=== PATIENT | male | born 1945 | race Caucasian/White ===

== ENCOUNTER → 2023-07-26 | Outpatient (CLI) | payer MEDICARE, BC ==
[2023-07-26 16:12] LABS: HCT 40.6 % (39.6-50.0); HGB 13.9 g/dL (13.0-17.0); MCH 32.9 pg (27.0-32.0); MCHC 34.2 g/dL (32.0-37.0); Mean Platelet Volume 9.8 FL (9.5-12.2); NRBC Per 100 WBC 0 X 10*3/uL (0.00-0.01); Platelet Count 268 X 10*3/uL (140-440); RBC 4.23 X 10*6/uL (4.40-5.60); WBC 3.13 X 10*3/uL (4.50-10.00)
[2023-07-26 16:18] LABS: BUN/Creat Ratio 24.62 Ratio (12.00-20.00); Blood Urea Nitrogen 19.7 mg/dL (9.0-27.0); Calcium 10.2 mg/dL (8.7-10.3); Carbon Dioxide 23.2 mmol/L (21.6-31.8); Chloride 104 mmol/L (96-109); Glucose 112 mg/dL (70-110); Potassium 4.5 mmol/L (3.5-5.5); Sodium 139 mmol/L (135-145)
== END | disposition home or self-care (01) ==
LOC: LABWHC1 07:25
PROVIDERS: ATTEND Surgery
DX: Z01.812 Encounter for preprocedural laboratory examination (principal)
CPT/HCPCS: 36415; 80048; 83036; 85027; 86850; 86900; 86901

== ENCOUNTER → 2023-11-03 | Outpatient (CLI) | payer MEDICARE, BC ==
[2023-11-03 10:33] LABS: African American GFR (CKD) >90 (>60 ml/min/1.73 sqM); Blood Urea Nitrogen 18 mg/dL (9-20); Non-African American GFR(CKD) >90 (>60 ml/min/1.73 sqM)
--- NOTE | 2023-11-03 12:23 | CT ---
EXAMINATION TYPE: CT ChestAbdPelvis w con DATE OF EXAM: 11/03/2023 COMPARISON: Head CT 07/17/2022 HISTORY: 77-year-old male f/u rectal ca TECHNIQUE: Contiguous axial scanning of the chest, abdomen, and pelvis performed with IV Contrast, pa tient injected with 100 mL of Isovue 300. Delayed images through the kidneys were obtained. Coronal/s agittal reconstructions performed. CT DLP: 927.7 mGycm Automated exposure control for dose reduction was used. FINDINGS: Chest: Heart normal size without pericardial effusion. The aorta is caliber with no charge was a branching anatomy. Right anterior chest wall injection port with catheter tip at the cavoatrial junction. Enlarged caliber to the main right and left pulmonary artery were 90 cm underlying pulmonary hyperten carmel. No thoracic lymphadenopathy by CT size criteria. Some interstitial scarring at the medial right base with mild bronchiolectasis. Minimal emphysematous change. No consolidation or pleural effusion. ABDOMEN: Unchanged 1.6 cm cyst right hepatic dome. Portal venous system. Gallbladder distended up to 5.0 cm wide with gallstones measuring up to 1.2 cm. No biliary ductal dil atation. Portal venous system is patent. Adrenal glands, left kidney, spleen, and pancreas within normal limits. Right-sided renal cortical cysts measuring up to 2.8 cm redemonstrated. No dilated small bowel, free fluid, or free air. No mesenteric or retroperitoneal lymphadenopathy see n. Normal appendix visualized. Postsurgical change along the right lower quadrant likely from previous ostomy takedown. There is sca ttered mild to moderate stool. Oral contrast progressed to the rectum. There is circumferential wall thickening of the distal rectum with distal rectal anastomosis demonstrated. Presacral soft tissue th ickening and stranding and mild fat stranding within the lower pelvic fat. Pelvis: Mild circumferential bladder wall thickening is unchanged, probably chronic for the patient especiall y given the prostatomegaly at 5.1 cm wide. No pelvic lymphadenopathy seen. Bones: Moderate degenerative change of the hips. Degenerative change bilateral SI joints. [facility] mid and lower thoracic spine. Moderate degenerative change mid and lower lumbar spine. Degenerative grade 1 retrol isthesis L2-L3 and L3-L4. No osseous destructive process seen. IMPRESSION: 1. DISTAL RECTAL RESECTION AND RE-ANASTOMOSIS WITH ASSOCIATED MILD SOFT TISSUE THICKENING, PRESACRAL STRANDING, AND ADDITIONAL MILD STRANDING THROUGHOUT THE LOWER PELVIC FAT. FINDINGS LIKELY ON THE BASI S OF POSTTREATMENT CHANGE. ONGOING FOLLOW-UP CAN BE PERFORMED. NO DISCRETE MASS OR LYMPHADENOPATHY TO CLEARLY INDICATE RECURRENT DISEASE. 2. SCARRING ALONG THE ANTERIOR WALL OF THE RIGHT LOWER QUADRANT SUGGESTING PREVIOUS OSTOMY TAKEDOWN. 3. CHOLELITHIASIS WITH HYDROPIC GALLBLADDER UP TO 5.0 CM WIDE. THE GALLBLADDER DISTENTION IS PROBABLY DUE TO FASTING STATE. HIDA SCAN IF CONCERN FOR EARLY ACUTE CHOLECYSTITIS. 4. PROSTATOMEGALY OF 5.1 CM WIDE.
== END | disposition home or self-care (01) ==
LOC: RADCTMAIN 09:52
PROVIDERS: ATTEND Internal Medicine Hematology & Oncology
DX: C20 Malignant neoplasm of rectum (principal); K80.20 Calculus of gallbladder without cholecystitis without obstruction; N40.0 Benign prostatic hyperplasia without lower urinary tract symptoms; I10 Essential (primary) hypertension; E78.5 Hyperlipidemia, unspecified; E11.9 Type 2 diabetes mellitus without complications
CPT/HCPCS: 82565; 84520; 71260; 74177; 36415; Q9967

== ENCOUNTER → 2024-02-02 | Outpatient (CLI) | payer MEDICARE, BC ==
[2024-02-02 08:39] VITALS: BP 181/72; PULSE 45; RESP 16; TEMP 97.9
--- NOTE | 2024-02-02 09:29 | P.PAINPG ---
PQRS Measure Charge Sheet Comment: HISTORY OF PRESENT ILLNESS: A 78 yr old male w daughter at side as a referral from [facility] presents today w severe and chronic LBP > 10 yrs secondary to radiculopathy, spondylosis and facet arthropathy without myelopathy for evaluation. Pt states pain level is provoked at 10 /10 in intensity, constant, localized in the lumbar spine, predominantly axial, sharp in character w occasional shooting pain towards the hamstrings and knees. Pain is provoked by over activity. Pain is alleviated by chiropractic treatments monthly from - Fall 2022, physician guided home stretches daily since Fall 2022, ice, medications (Aleve), topical Icy-Hot, use of a cane for ambulatory asssistance, repositioning and rest . PMH: OA, aFib (2022), Rectal CA (2022), NIDDM II, [place], Hyperlipidemia, HTN PSH: Colorectal Surgery w Ostomy bag (Fall 2022), Chemotherapy w Radiation (2022), Colonoscopies x2 SH: Former tobacco user (Quit 1981), Rare ETOH use, No illicit drug use FH: Sis- Pancreatic CA All: See list Meds: See list REVIEW OF ORGAN SYSTEMS: CONSTITUTIONAL: No fevers or chills. No recent weight loss. NEUROLOGICAL: + numbness and tingling along the distal extremities. No seizure disorders or headaches. MUSCULOSKELETAL: + pain PSYCHIATRIC: Denies current depression or suicidal thoughts. Physical Examinations : Constitutional : Cooperative , not in acute distress . Neurologic : Cranial nerve II to XII intact. No focal neurological deficits. Psychiatric : alert & oriented x 3. Matching mood & appropriate affect. Judgment & insight intact. Musculoskeletal : Cervical Spine Motor strength in the deltoid and biceps: Normal right side. Normal Left side Motor strength biceps and the wrist extensors: Normal right side . Normal left side Motor strength in the triceps muscle: Normal right side. Normal left side Deep tendon reflexes: Normal at the biceps. Normal at Brachioradialis. Normal at triceps Vertebral body tenderness to deep palpation over Cervical facet loading test: positive bilaterally Spurling test: positive bilaterally Neck distraction test: positive bilaterally Jackie sign: positive bilaterally Lumbar spine Motor strength lower extremities ,thigh and legs 5/5 Right side , 5/5 Left side Deep tendon reflexes : Normal Knee Jerk. Normal Ankle Jerk Vertebral body tenderness over L3 Cam Test positive BL L3-L4 Lumbar facet Loading Test: positive Right / positive Left Range of motion of the lumbar spine F lexion 30 degrees, extension 10 degrees Straight Leg Raise test: Left/ Right positive at degrees Nithya test: positive right / positive left. Severe tenderness over the Sacroiliac joint on the Right / Left sides Gaenslen test: positive bilaterally Seated flexion test: positive bilaterally. Sacral spine : Severe tenderness over the Sacroiliac joint: right side / left side Range of motion: Flexion of the lumbar spine <60 degrees Range of motion: Extension of the lumbar spine <20 degrees Gaenslen's Test positive Nithya test: positive right side / left side Thigh Thrust Test Sacral Thrust Test Imaging: CT non contrast pelvis/ abd/ chest from 11/03/23 reviewed Assessment/ Plan : Lumbar radiculopathy Recommendation of CINDY L3-L4 #1. [place] 5/325mg #18 NR Use, side effects, adverse reactions, safe storage discussed. Risks, benefits of procedure discussed and patient verbalized understanding. Admits to anti- coagulant use or medical history of diabetes. Protocol for discontinuation/ continuation of medications tejas procedure discussed. All questions answered. I have spent greater than 30 minutes on patient care today. Dr Blank was available by phone for the evaluation of this patient. The time was used to review the medical records including relevant urine studies and Prescription history (MAPs), review of the available imaging, evaluation and examination of the patient, coordination of care with the medical staff and if applicable refe rring physicians, as well as creation of the medical record - Pain Location Bilateral Knee Non-Pharmacological Interventions: Distraction Pharmacological Interventions: Medication, PRN Medication PQRS Narrative: Smoking Status Former smoker Home Medications: Ambulatory Orders gemfibroziL [Lopid] 600 mg PO BID 06/27/15 metFORMIN HCL [Glucophage] 500 mg PO BID 06/17/22 Metoprolol Tartrate [Lopressor] 25 mg PO BID #60 tab 06/19/22 HYDROcodone/APAP 5-325MG [[place] 5-325] 1 tab PO Q4HR PRN 3 Days #18 tab 02/02/24 Controlled Substance Measures - Controlled Substance Measures Is patient prescribed a controlled substance at discharge?: Yes When asked, does pt state using other controlled substances?: Yes If prescribed controlled substance>3 days was MAPS reviewed?: Prescribed <3 Days
== END ==
LOC: PNWHC3 08:08
PROVIDERS: ATTEND Specialist
DX: M54.30 Sciatica, unspecified side
CPT/HCPCS: 99211

== ENCOUNTER → 2024-02-07 | Outpatient (CLI) | payer MEDICARE, BC ==
[2024-02-07 14:42] LABS: African American GFR (CKD) >90 (>60 ml/min/1.73 sqM); Blood Urea Nitrogen 20 mg/dL (9-20); Non-African American GFR(CKD) 84 (>60 ml/min/1.73 sqM)
--- NOTE | 2024-02-07 16:15 | CT ---
EXAMINATION TYPE: CT ChestAbdPelvis w con CT DLP: 1169.8 mGycm, Automated exposure control for dose reduction was used. DATE OF EXAM: 02/07/2024 3:59 PM COMPARISON: CT chest abdomen and pelvis 11/03/2023, PET/CT 07/17/2022 CLINICAL INDICATION:Male, 78 years old with history of C20 MALIGNANT NEOPLASM OF RECTUM; PHH, f/u rec abi ca. Technique: Multiple axial images of the chest, abdomen, and pelvis were obtained following the intrav enous administration of 100 mL Isovue-300. Oral contrast was administered. Two-dimensional coronal an d sagittal reconstructions were obtained. Findings: CHEST: LUNGS/ PLEURA: The lung parenchyma appears unremarkable. No suspicious pulmonary nodular mass. AIRWAY: Patent and unremarkable.. HEART: Mildly enlarged. No pericardial effusion. MEDIASTINUM: No gross evidence of adenopathy. VASCULATURE: No aortic aneurysm. Right chest wall IJ Mediport catheter with distal tip terminating a t the superior cavoatrial junction. Prominent caliber of the main right and left pulmonary arteries s uggestive of pulmonary arterial hypertension. MUSCULOSKELETAL: No acute osseous abnormalities. Multilevel degenerative disc disease. SOFT TISSUES/LYMPH NODES: Unremarkable. LOWER NECK: No significant findings. ABDOMEN: ABDOMEN LIVER: Stable right hepatic dome 1.3 cm cyst. Portal venous system is patent. GALLBLADDER AND BILE DUCTS: Redemonstration of distended gallbladder with gallstones identified. No s urrounding inflammatory changes identified. No biliary ductal dilatation. PANCREAS: Unremarkable. SPLEEN: Unremarkable. ADRENAL GLANDS: Unremarkable. KIDNEYS AND URETERS: No evidence of hydronephrosis or renal calculus. The kidneys enhance symmetrical ly. Stable right lower pole exophytic 2.6 cm cyst. Contrast is demonstrated within both collecting sy stems on the delayed phase. PELVIS BLADDER: Unremarkable REPRODUCTIVE: Prostate is enlarged in size measuring 5.0 cm in transverse dimension. ABDOMEN & PELVIS STOMACH AND BOWEL: Stomach and duodenum are unremarkable. Enteric contrast reaches the hepatic flexur e. No focal bowel wall thickening or surrounding inflammatory changes. An anastomosis identified at t he rectosigmoid region. No wall thickening identified in this region. Mild to moderate colonic stool burden. No evidence of bowel obstruction. PERITONEUM: No evidence of pneumoperitoneum or free fluid. VASCULATURE: No evidence of aortic aneurysm. MUSCULOSKELETAL: No acute osseous abnormalities. Moderate degenerative changes of the hips. Degenerat jeni changes of the bilateral acetabula. [facility] of the mid and lower thoracic spine. Moderate degenerati ve changes of the mid to lower lumbar spine. Mild degenerative retrolisthesis of L2 on L3 and L3 on L 4. No destructive osseous lesion identified. Degenerative changes of the pubic symphysis. LYMPH NODES: No evidence for lymphadenopathy. SOFT TISSUE/ABDOMINAL WALL: Postsurgical changes within the right lower quadrant likely from previous ostomy takedown. Presacral soft tissue thickening and stranding within the mild pelvic and lower fat is again demonstrated. No significant change. IMPRESSION: 1. Postsurgical changes with distal rectal resection and re-anastomosis redemonstrated. No soft tiss ue thickening in this region to suggest recurrence. No lymphadenopathy identified within the chest, a bdomen or pelvis. 2. Hydropic gallbladder cholelithiasis is redemonstrated. No CT evidence of surrounding inflammatory changes. [facility], , 02/07/2024 4:13 PM
== END | disposition home or self-care (01) ==
LOC: RADCTMAIN 13:44
PROVIDERS: ATTEND Internal Medicine Hematology & Oncology
DX: C20 Malignant neoplasm of rectum
CPT/HCPCS: 36415; 71260; 74177; 82565; 84520

== ENCOUNTER 2024-02-17 08:07 | Day surgery (SDC) | payer MEDICARE, BC ==
[2024-02-17] MEDS ORDERED: LACTATED RINGERS 1,000 ML IV SCH (09:26)
[2024-02-17 09:33] LABS: Glucose,Whole Blood 115 mg/dL (70-110)
[2024-02-17 09:34] VITALS: RESP 16; TEMP 97.8
[2024-02-17] MEDS ORDERED: IOPAMIDOL M200 10 ML VIAL ONE (10:01)
[2024-02-17] MEDS ORDERED: methylPREDNISolone ACETATE 40 MG/ML 1 ML VIAL ONE (10:01)
--- NOTE | 2024-02-17 10:10 | P.PCN ---
Date of Procedure: 02/17/24 Procedure(s) Performed: PREOPERATIVE DIAGNOSIS: 1- Lumbar Degenerative Disc Diseases 2-Lumbar spondylosis with Facet arthropathy without myelopathy. 3-lumbar radiculopathy POSTOPERATIVE DIAGNOSIS: 1-lumbar degenerative disc disease. 2-lumbar spondylosis with facet arthropathy without myelopathy. 3-lumbar radiculopathy PROCEDURE 1. Lumbar epidural steroid injection under fluoroscopic guidance at the L3-4 level. (Fluoroscopy imaging was available in radiology department) 2. Lumbar epidurogram. ANESTHESIA: Lidocaine 1% 3 and then only. EBL: Minimal PROCEDURE INDICATION: The patient with low back pain and radiculitis symptoms unresponsive to conservative treatment. Fluoroscopy was used to optimize visualization of the needle placement and to maximize safety. PROCEDURE DESCRIPTION / TECHNIQUE: The patient was seen and identified in the preoperative area. Risks, benefits, complications including but not limited to infections ,bleeding ,allergic reaction to the medications ,nerve damage and not complete pain releife , and alternatives were discussed with the patient. The patient agreed to proceed with the procedure and signed the consent, and vital signs were stable. Patient was taken to the OR and time out was completed. The patient was placed in the prone position on procedure table and a pillow was placed under the abdomen to reduce lumbar lordosis. The lumbosacral area was prepped and draped in the usual sterile fashion.ere closely monitored during the procedure. Vital signs was monitered during the entire procedure. Using anterior-posterior fluoroscopy, the L3-4 interlaminar space was identified and the skin over this site was marked and then infiltrated with 1% lidocaine subcutaneously. Subsequently, a 20-gauge Tuohy epidural needle was inserted and advanced toward the epidural space using the ``Loss of resistance technique and guided by AP and lateral fluoroscopy. The correct needle position in the epidural space was verified with the injection of 2 mL of the water soluble contrast dye Isovue 200 contrast and observing an excellent epidurogram with the epidural spread of the dye, after negative aspiration for blood and CSF and in the absence of paresthesias. Again after negative aspiration, a 6 ml mixture containing 40 mg of Depo-medrol ( Preservetive Free ), and 2 ml of preservative free Normal Saline, and 2 ml of preservative free lidocaine 1% solution was injected and a washout of epidurogram was seen. Needle was withdrawn intact, skin was cleansed, and bandages were applied. COMPLICATIONS: None DISPOSITION / PLANS: The patient was placed in a supine position and transferred to the recovery area in a stable condition for observation. There was no evidence of lower extremity motor or sensory deficit after the procedure. Patient was discharged from the recovery room after meeting discharge criteria. Home discharge instructions were given to the patient by the staff. The patient was reexamined prior to discharge. The patient will schedule a follow up in the clinic in 2-4 weeks.
[2024-02-17 10:33] VITALS: BP 180/74; PULSE 42
--- NOTE | 2024-02-17 11:53 | FL ---
Fluoroscopy History: PAIN lumbar epid inj 5sec fluoro time .[id number] [facility], , 02/17/2024 11:51 AM
== END 2024-02-17 10:45 | disposition home or self-care (01) ==
LOC: ORPAIN 08:07
PROVIDERS: ATTEND Specialist
DX: M54.16 Radiculopathy, lumbar region
CPT/HCPCS: 62323

== ENCOUNTER → 2024-03-06 | Outpatient (CLI) | payer MEDICARE, BC ==
[2024-03-06 16:18] LABS: ALT 10 U/L (10-49); AST 18 U/L (14-35); Albumin 4.7 g/dL (3.8-4.9); Albumin/Globulin Ratio 1.47 Ratio (1.60-3.17); Alkaline Phosphatase 90 U/L (41-126); BUN/Creat Ratio 22.88 Ratio (12.00-20.00); Blood Urea Nitrogen 18.3 mg/dL (9.0-27.0); Calcium 10.4 mg/dL (8.7-10.3); Carbon Dioxide 26.1 mmol/L (21.6-31.8); Chloride 102 mmol/L (96-109); Globulin 3.2 g/dL (1.6-3.3); Glucose 113 mg/dL (70-110); Potassium 4.8 mmol/L (3.5-5.5); Sodium 139 mmol/L (135-145); Total Bilirubin 0.4 mg/dL (0.3-1.2); Total Protein 7.9 g/dL (6.2-8.2)
[2024-03-06 21:28] LABS: Urine Creatinine 38.7 mg/dL (39.0-259.0)
== END | disposition home or self-care (01) ==
LOC: LABWHC1 09:06
PROVIDERS: ATTEND Nurse Practitioner Family
CPT/HCPCS: 36415; 80053; 82043; 82570; 83036

== ENCOUNTER → 2024-03-06 | Outpatient (CLI) | payer MEDICARE, BC ==
[2024-03-06 08:37] VITALS: BP 164/76; PULSE 51; RESP 16
--- NOTE | 2024-03-08 07:52 | P.PAINPG ---
Objective - Vital Signs Vital signs: Vital Signs Temp Pulse 51 L 03/06/24 08:34 Resp 16 03/06/24 08:34 BP 164/76 03/06/24 08:34 Pulse Ox 100 03/06/24 08:34 FiO2 Intake & Output 03/05/24 03/06/24 03/06/24 18:59 06:59 18:59 Weight 74.843 kg PQRS Measure Charge Sheet Mode of Arrival: Ambulatory Comment: HISTORY OF PRESENT ILLNESS: A 78 yr old male w daughter at [facility] presents today w severe and chronic LBP > 10 yrs secondary to radiculopathy, spondylosis and facet arthropathy without myelopathy for evaluation s/p CINDY L3-L4 #1. Pt states he experienced 75% pain relief x 2 wk s/p procedure. Pt states pain level is provoked at 5-6 /10 in intensity, waxes & wanes in intensity, localized in the lumbar spine, predominantly axial, sharp in character w occasional shooting pain towards the BLEs. Pain is provoked by over activity. Pain is alleviated by chiropractic treatments monthly from - Fall 2022, physician guided home stretches daily since Fall 2022, ice, medications, topical, use of a cane for ambulatory assistance, repositioning and rest . Interventional procedures include CINDY L3-L4 x1 Medications include Aleve, Icy-Hot REVIEW OF ORGAN SYSTEMS: CONSTITUTIONAL: No fevers or chills. No recent weight loss. NEUROLOGICAL: + numbness and tingling along the distal extremities. No seizure disorders or headaches. MUSCULOSKELETAL: + pain PSYCHIATRIC: Denies current depression or suicidal thoughts. Physical Examinations : Constitutional : Cooperative , not in acute distress . Neurologic : Cranial nerve II to XII intact. No focal neurological deficits. Psychiatric : alert & oriented x 3. Matching mood & appropriate affect. Judgment & insight intact. Musculoskeletal : Cervical Spine Motor strength in the deltoid and biceps: Normal right side. Normal Left side Motor strength biceps and the wrist extensors: Normal right side . Normal left side Motor strength in the triceps muscle: Normal right side. Normal left side Deep tendon reflexes: Normal at the biceps. Normal at Brachioradialis. Normal at triceps Vertebral body tenderness to deep palpation over Cervical facet loading test: positive bilaterally Spurling test: positive bilaterally Neck distraction test: positive bilaterally Jackie sign: positive bilaterally Lumbar spine Motor strength lower extremities ,thigh and legs 5/5 Right side , 5/5 Left side Deep tendon reflexes : Normal Knee Jerk. Normal Ankle Jerk Vertebral body tenderness over L3 Cam Test positive BL L3-L4 Lumbar facet Loading Test: positive Right / positive Left Range of motion of the lumbar spine Flexion 30 degrees, extension 10 degrees Straight Leg Raise test: Left/ Right positive at degrees Nithya test: positive right / positive left. Severe tenderness over the Sacroiliac joint on the Right / Left sides Gaenslen test: positive bilaterally Seated flexion test: positive bilaterally. Sacral spine : Severe tenderness over the Sacroiliac joint: right side / left side Range of motion: Flexion of the lumbar spine <60 degrees Range of motion: Extension of the lumbar spine <20 degrees Gaenslen's Test positive Nithya test: positive right side / left side Thigh Thrust Test Sacral Thrust Test Imaging: CT non contrast pelvis/ abd/ chest from 11/03/23 reviewed Assessment/ Plan : Lumbar radiculopathy Recommendation of CINDY L3-L4 #2. Risks, benefits of procedure discussed and patient verbalized understanding. Admits to anti- coagulant use or medical history of diabetes. Protocol for discontinuation/ continuation of medications tejas procedure discussed. All questions answered. I have spent greater than 30 minutes on patient care today. Dr Blank was available by phone for the evaluation of this patient. The time was used to review the medical records including relevant urine studies and Prescription history (MAPs), review of the available imaging, evaluation and examination of the patient, coordination of care with the medical staff and if applicable referring physicians, as well as creation of the medical record - Pain Location Lower Back Non-Pharmacological Interventions: Chiropractic Treatment Pharmacological Interventions: Epidural, Scheduled Medication PQRS Narrative: Smoking Status Former smoker Blood Pressure 164/76 Pain Intensity [Lower Back] 5 Scale Used Numeric (1 - 10) Hx Alcohol Use (MH) No Home Medications: Ambulatory Orders gemfibroziL [Lopid] 600 mg PO BID 06/27/15 metFORMIN HCL [Glucophage] 500 mg PO BID 06/17/22 Metoprolol Tartrate [Lopressor] 25 mg PO BID #60 tab 06/19/22 HYDROcodone/APAP 5-325MG [[place] 5-325] 1 tab PO Q4HR PRN 3 Days #18 tab 02/02/24 Controlled Substance Measures - Controlled Substance Measures Is patient prescribed a controlled substance at discharge?: No
== END ==
LOC: PNWHC3 08:06
PROVIDERS: ATTEND Specialist
DX: M54.16 Radiculopathy, lumbar region (principal); Z87.891 Personal history of nicotine dependence; Z88.8 Allergy status to other drugs, medicaments and biological substances
CPT/HCPCS: 99211

== ENCOUNTER 2024-03-16 11:51 | Day surgery (SDC) | payer MEDICARE, BC ==
[~2024-03-16 11:51] MED LIST: LACTATED RINGERS 1,000 ML IV SCH
[2024-03-16 12:46] VITALS: TEMP 97.4
[2024-03-16 12:55] LABS: Glucose,Whole Blood 100 mg/dL (70-110)
[2024-03-16] MEDS ORDERED: IOPAMIDOL M300 15ML VIAL ONE (13:33)
[2024-03-16] MEDS ORDERED: ROPIVACAINE 5MG/ML 20ML VIAL ONE (13:33)
[2024-03-16] MEDS ORDERED: methylPREDNISolone ACETATE 80 MG/ML 1 ML VIAL ONE (13:33)
--- NOTE | 2024-03-16 13:51 | P.PCN ---
Description of Procedure: PREOPERATIVE DIAGNOSIS: 1- Lumbar Degenerative Disc Diseases 2-Lumbar spondylosis with Facet arthropathy without myelopathy. 3-lumbar spinal stenosis POSTOPERATIVE DIAGNOSIS: 1-lumbar degenerative disc disease. 2-lumbar spondylosis with facet arthropathy without myelopathy. 3-lumbar spinal stenosis. PROCEDURE Injection of radio contrast material into L4-5 interspace, interpretation of epidurogram, injection of steroid at L4- 5 epidural space under fluoroscopic guidance. ANESTHESIA: Lidocaine 1% subcutaneously. In OR continuous pulse ox, EKG, blood pressure and verbal communication was maintained with the patient. EBL: Minimal PROCEDURE INDICATION: Before the procedure were discussed with the patient detailed procedure, alternatives, complications including infection, bleeding, nerve damage, paralysis all of which could be permanent. Patient understands and all questions were answered. PROCEDURE DESCRIPTION : After getting consent, patient in OR in prone position. Back was prepped with chlorhexidine and draped in sterile fashion. After injecting 10 mL of 1% lidocaine subcutaneously, a 20-gauge Tuohy needle was introduced at L4 5 interspace with loss of resistance technique using a syringe filled with air. Negative CSF, negative blood, negative paresthesia. At first initially, attempted to put the needle in the epidural space at L3-4 without success. Needle position was confirmed with AP and lateral L3-4 view of the fluoroscope. After repeat negative aspiration 2 mL of Omnipaque 200 water soluble contrast was injected. Contrast was noted in the epidural space. No contrast was noted into intrathecal or intravascular space. After repeat negative aspiration 6 mL solution was injected intermittently which consists of 5 mL of preservative-free normal saline mixed with 1 mL of 80 mg Depo-Medrol. Needle was withdrawn intact. Skin was cleansed and Band-Aids was applied. DISPOSITION / PLANS: The patient tolerated the procedure well. No complication. The patient was placed in a supine position and transferred to the recovery area in a stable condition for observation. There was no evidence of lower extremity motor or sensory deficit after the procedure. Patient was discharged from the recovery room after meeting discharge criteria. Home discharge instructions were given to the patient by the staff. The patient was reexamined prior to discharge. The patient will schedule a follow up in the clinic in 2-4 weeks.
[2024-03-16 14:04] VITALS: BP 165/74; PULSE 46; RESP 18
--- NOTE | 2024-03-16 15:40 | FL ---
Fluoroscopy INDICATION: Pain FINDINGS: Fluoroscopy time: 13.2 seconds. Total dose area product (DAP) in uGy*m?, mGy*cm? (or similar): 0.02505 Images obtained: 3. Needle directed to the lumbar spine region IMPRESSION: 1. Documentation of fluoroscopy. [facility] , 03/16/2024 3:38 PM
== END 2024-03-16 14:17 | disposition home or self-care (01) ==
LOC: ORPAIN 11:51
PROVIDERS: ATTEND Pain Medicine Interventional Pain Medicine
DX: M47.816 Spondylosis without myelopathy or radiculopathy, lumbar region (principal); M48.061 Spinal stenosis, lumbar region without neurogenic claudication; M51.369 Other intervertebral disc degeneration, lumbar region without mention of lumbar back pain or lower extremity pain; E11.9 Type 2 diabetes mellitus without complications; Z79.84 Long term (current) use of oral hypoglycemic drugs; Z88.8 Allergy status to other drugs, medicaments and biological substances
CPT/HCPCS: 62323

== ENCOUNTER → 2024-04-03 | Outpatient (CLI) | payer MEDICARE, BC ==
[2024-04-03 09:22] VITALS: BP 197/94; PULSE 52; RESP 16; TEMP 97.3
--- NOTE | 2024-04-03 16:47 | P.PAINPG ---
PQRS Measure Charge Sheet Comment: HISTORY OF PRESENT ILLNESS: A 78 yr old male w daughter at side presents today w severe and chronic LBP > 10 yrs secondary to radiculopathy, spondylosis and facet arthropathy without myelopathy for evaluation s/p CINDY L4-5 #2. Pt states he experienced 70% pain relief x 1 wk s/p procedure. Pt states pain level is provoked at 8 /10 in intensity, waxes & wanes in intensity, achy in character w occasional shooting pain towards the R < LLE. Pain is provoked by walking/ standing for periods > 10 min. Pain is alleviated by chiropractic treatments monthly from - Fall 2022, physician guided home stretches daily since Fall 2022, ice, medications, topical, use of a cane for ambulatory assistance, repositioning and rest . He could not complete PT due to dizziness and other health issues. He states he's had an ultrasound of the LEs and wears compression stockings at bedtime. Interventional procedures include CINDY L3-L4 x1, L4-L5 x1 Medications include Aleve, Icy-Hot REVIEW OF ORGAN SYSTEMS: CONSTITUTIONAL: No fevers or chills. No recent weight loss. NEUROLOGICAL: + numbness and tingling along the distal extremities. No seizure disorders or headaches. MUSCULOSKELETAL: + pain PSYCHIATRIC: Denies current depression or suicidal thoughts. Physical Examinations : Constitutional : Cooperative , not in acute distress . Neurologic : Cranial nerve II to XII intact. No focal neurological deficits. Psychiatric : alert & oriented x 3. Matching mood & appropriate affect. Judgment & insight intact. Musculoskeletal : Cervical Spine Motor strength in the deltoid and biceps: Normal right side. Normal Left side Motor strength biceps and the wrist extensors: Normal right side . Normal left side Motor strength in the triceps muscle: Normal right side. Normal left side Deep tendon reflexes: Normal at the biceps. Normal at Brachioradialis. Normal at triceps Vertebral body tenderness to deep palpation over Cervical facet loading test: positive bilaterally Spurling test: positive bilaterally Neck distraction test: positive bilaterally Jackie sign: positive bilaterally Lumbar spine Motor strength lower extremities ,thigh and legs 5/5 Right side , 5/5 Left side Deep tendon reflexes : Normal Knee Jerk. Normal Ankle Jerk Vertebral body tenderness over L3 Cam Test positive BL L3-L4 Lumbar facet Loading Test: positive Right / positive Left Range of motion of the lumbar spine Flexion 30 degrees, extension 10 degrees Straight Leg Raise test: Left/ Right positive at degrees Nithya test: positive right / positive left. Severe tenderness over the Sacroiliac joint on the Right / Left sides Gaenslen test: positive bilaterally Seated flexion test: positive bilate rally. Sacral spine : Severe tenderness over the Sacroiliac joint: right side / left side Range of motion: Flexion of the lumbar spine <60 degrees Range of motion: Extension of the lumbar spine <20 degrees Gaenslen's Test positive Nithya test: positive right side / left side Thigh Thrust Test Sacral Thrust Test Imaging: CT non contrast pelvis/ abd/ chest from 11/03/23 reviewed Assessment/ Plan : Lumbar radiculopathy Recommendation of follow up w PCP or school athletic director as pt describes circulatory issues that need a LE doppler to rule out clot or rule in arteriosclerosis. He does not have pain in the lumbar spine. All questions answered. I have spent greater than 30 minutes on patient care today. Dr Blank was available by phone for the evaluation of this patient. The time was used to review the medical records including relevant urine studies and Prescription history (MAPs), review of the available imaging, evaluation and examination of the patient, coordination of care with the medical staff and if applicable referring physicians, as well as creation of the medical record PQRS Narrative: Smoking Status Former smoker Hx Alcohol Use (MH) No Home Medications: Ambulatory Orders gemfibroziL [Lopid] 600 mg PO BID 06/27/15 metFORMIN HCL [Glucophage] 500 mg PO BID 06/17/22 Metoprolol Tartrate [Lopressor] 25 mg PO BID #60 tab 06/19/22 HYDROcodone/APAP 5-325MG [[facility] 5-325] 1 tab PO Q4HR PRN 3 Days #18 tab 02/02/24 Controlled Substance Measures - Controlled Substance Measures Is patient prescribed a controlled substance at discharge?: No
== END ==
LOC: PNWHC3 08:46
PROVIDERS: ATTEND Specialist
DX: M47.26 Other spondylosis with radiculopathy, lumbar region (principal); Z87.891 Personal history of nicotine dependence; Z88.8 Allergy status to other drugs, medicaments and biological substances
CPT/HCPCS: 99211

== ENCOUNTER → 2024-04-18 | Day surgery (SDC) | payer MEDICARE, BC ==
[2024-04-13 09:51] VITALS: BMI 26.6
[~2024-04-18] MED LIST changes: -LACTATED RINGERS 1,000 ML IV SCH; +PROPOFOL 10 MG/ML 20 ML VIAL IV ONE
[2024-04-18 07:28] VITALS: TEMP 97.9
[2024-04-18 07:44] LABS: Glucose,Whole Blood 116 mg/dL (70-110)
[2024-04-18] MEDS: LACTATED RINGERS 1,000 ML IV SCH (07:44)
[2024-04-18] MEDS: IV FLUID CONTINUATION 1,000 ML IV ONE (07:44)
--- NOTE | 2024-04-18 08:07 | P.GSHP ---
History of Present Illness H&P Date: 04/18/24 Chief Complaint: Rectal cancer 78-year-old male known to our service. Underwent low anterior resection at [facility] for rectal cancer last year. Patient doing well. Last colonoscopy approximately 1 year ago. No rectal bleeding. Past Medical History Past Medical History: Atrial Fibrillation, Cancer, Diabetes Mellitus, Hearing Disorder / Deafness, Hyperlipidemia, Hypertension, Osteoarthritis (OA) Additional Past Medical History / Comment(s): . Rectal cancer diagnosed 06/19/22, treated with Chemo and Radiation. Hx A-Fib X1 occasion only on 06/17/22, self resolved and no further problems. Hx kidney stones. Gallstones. Sciaticia. Hard of hearing. History of Any Multi-Drug Resistant Organisms: None Reported Past Surgical History: Bowel Resection Additional Past Surgical History / Comment(s): Colonoscopy X2. colosotomy and reversal Past Anesthesia/Blood Transfusion Reactions: No Reported Reaction Additional Past Anesthesia/Blood Transfusion Reaction / Comment(s): Has never had general anesthesia. Daughter PONV. no blood transfusion Smoking Status: Former smoker - Past Family History Sister(s) Family Medical History: Cancer Additional Family Medical History / Comment(s): Pancreatic cancer. Medications and Allergies Home Medications Medication Instructions Recorded Confirmed Type gemfibroziL [Lopid] 600 mg PO BID 06/27/15 04/13/24 History metFORMIN HCL [Glucophage] 500 mg PO BID 06/17/22 04/13/24 History Metoprolol Tartrate [Lopressor] 25 mg PO BID #60 tab 06/19/22 04/13/24 Rx HYDROcodone/APAP 5-325MG [[place] 1 tab PO Q4HR PRN 3 Days #18 tab 02/02/24 04/13/24 Rx 5-325] Allergies Allergy/AdvReac Type Severity Reaction Status Date / Time rosuvastatin [From Crestor] AdvReac Joint pain Verified 04/18/24 07:22 Surgical - Exam Vital Signs Temp Pulse Resp BP Pulse Ox 97.9 F 61 16 202/97 97 04/18/24 07:26 04/18/24 07:26 04/18/24 07:26 04/18/24 07:26 04/18/24 07:26 Physical exam: General: Well-developed, well-nourished HEENT: Normocephalic, sclerae nonicteric Abdomen: Nontender, nondistended Extremities: No edema Neuro: Alert and oriented Results - Labs Abnormal Lab Results - Last 24 Hours (Table) 04/18/24 Range/Units 07:43 POC Glucose (mg/dL) 116 H (70-110) mg/dL Assessment and Plan (1) Rectal cancer Narrative/Plan: Will proceed with colonoscopy at this time. Current Visit: No Status: Acute Code(s): C20 - MALIGNANT NEOPLASM OF RECTUM SNOMED Code(s): 416564269
--- NOTE | 2024-04-18 08:20 | P.PCN ---
Date of Procedure: 04/18/24 Procedure(s) Performed: PREOPERATIVE DIAGNOSIS: History of rectal cancer POSTOPERATIVE DIAGNOSIS: Transverse colon polyp, rectal polyp PROCEDURE: Colonoscopy with snare polypectomy ANESTHESIA: MAC SURGEON: Sushant Anderson M.D. SPECIMENS: Colon polyps ENDOSCOPIC PROCEDURE: The patient was placed on the endoscopy table in the left decubitus position. The Olympus colonoscope was inserted into the anus and passed under direct visualization to the base of the cecum. The appendiceal orifice was visualized. From that point the scope was slowly withdrawn inspecting all surfaces carefully. There were no neoplastic inflammatory or polypoid lesions throughout the cecum or ascending colon. In the proximal transverse colon a small polyp was noted and removed using the snare with cautery technique. The remainder of the transverse descending and sigmoid colon appeared normal. The colorectal anastomosis was widely patent. There were 2 silk sutures visualized. Next to one of the silk sutures was a small polypoid lesion that likely represented granulation tissue. This only measured about 4 mm in size. This was also removed with a snare with cautery technique. Remainder of the rectum was normal. No visible diverticulosis was seen. Digital rectal examination was normal. The patient was taken to the recovery room in stable condition per anesthesia guidelines. RECOMMENDATIONS: Await biopsy results. Anticipate repeat colonoscopy 3 years.
[2024-04-18 08:39] VITALS: BP 134/77; PULSE 54; RESP 16
== END ==
LOC: ORWHC2ENDO 07:07
PROVIDERS: ATTEND Surgery
DX: Z08 Encounter for follow-up examination after completed treatment for malignant neoplasm (principal); K62.1 Rectal polyp; D12.3 Benign neoplasm of transverse colon; Z85.048 Personal history of other malignant neoplasm of rectum, rectosigmoid junction, and anus; Z90.49 Acquired absence of other specified parts of digestive tract; E11.9 Type 2 diabetes mellitus without complications; E78.5 Hyperlipidemia, unspecified; H91.90 Unspecified hearing loss, unspecified ear; M19.90 Unspecified osteoarthritis, unspecified site; I10 Essential (primary) hypertension; M54.30 Sciatica, unspecified side; Z87.891 Personal history of nicotine dependence; Z92.3 Personal history of irradiation; Z92.21 Personal history of antineoplastic chemotherapy; Z87.442 Personal history of urinary calculi; Z86.79 Personal history of other diseases of the circulatory system; Z79.84 Long term (current) use of oral hypoglycemic drugs; Z79.899 Other long term (current) drug therapy; Z88.8 Allergy status to other drugs, medicaments and biological substances; Z80.0 Family history of malignant neoplasm of digestive organs
CPT/HCPCS: 88305; 45385; J2704

== ENCOUNTER → 2024-05-29 | Outpatient (CLI) | payer MEDICARE, BC ==
[2024-05-29 15:12] LABS: BUN/Creat Ratio 19.56 Ratio (12.00-20.00); Blood Urea Nitrogen 17.6 mg/dL (9.0-27.0); Chol/HDL Ratio 4.48 Ratio; Glucose 113 mg/dL (70-110); LDL Cholesterol,Calculated 121.3 mg/dL (0.0-131.0)
[2024-05-29 15:13] LABS: ALT 9 U/L (10-49); AST 17 U/L (14-35); Albumin 4.6 g/dL (3.8-4.9); Albumin/Globulin Ratio 1.48 Ratio (1.60-3.17); Alkaline Phosphatase 157 U/L (41-126); Calcium 9.9 mg/dL (8.7-10.3); Carbon Dioxide 23.6 mmol/L (21.6-31.8); Chloride 102 mmol/L (96-109); Globulin 3.1 g/dL (1.6-3.3); Potassium 4.5 mmol/L (3.5-5.5); Sodium 139 mmol/L (135-145); Total Bilirubin 0.5 mg/dL (0.3-1.2); Total Protein 7.7 g/dL (6.2-8.2)
== END | disposition home or self-care (01) ==
LOC: LABWHC1 08:14
PROVIDERS: ATTEND Family Medicine
DX: I10 Essential (primary) hypertension (principal); E11.9 Type 2 diabetes mellitus without complications
CPT/HCPCS: 36415; 80053; 80061; 83036

== ENCOUNTER 2024-09-25 05:44 | Day surgery (SDC) | payer MEDICARE, BC ==
[2024-09-22 12:15] VITALS: BMI 25.1
[2024-09-25] MEDS ORDERED: ONDANSETRON 4 MG/2 ML VIAL IVP ONE (05:59)
[2024-09-25] MEDS ORDERED: DEXAMETHASONE SOD PHOSPHATE 4 MG/ML 1 ML VIAL IV ONE (05:59)
[2024-09-25] MEDS ORDERED: HYDROmorphone 0.5 MG/0.5 ML SYRINGE IVP PRN (05:59)
[2024-09-25] MEDS ORDERED: LIDOCAINE 1% (10MG/ML) FOR IV START INTRADERMA PRN (05:59)
[2024-09-25 07:09] VITALS: RESP 16; TEMP 98.2
[2024-09-25] MEDS: LACTATED RINGERS 1,000 ML IV SCH (07:10)
[2024-09-25] MEDS: IV FLUID CONTINUATION 1,000 ML IV ONE (07:11)
[2024-09-25 07:13] LABS: Glucose,Whole Blood 123 mg/dL (70-110)
--- NOTE | 2024-09-25 07:26 | P.GSHP ---
History of Present Illness H&P Date: 09/25/24 Chief Complaint: Rectal cancer 78-year-old male here for Port-A-Cath removal. Port was placed last April for chemotherapy after rectal cancer surgery. No issues with the port. Patient requesting no anesthesia for the procedure. Past Medical History Past Medical History: Atrial Fibrillation, Cancer, Diabetes Mellitus, Hearing Disorder / Deafness, Hyperlipidemia, Hypertension, Osteoarthritis (OA) Additional Past Medical History / Comment(s): Rectal cancer diagnosed 06/19/22- treated with Chemo and Radiation. Hx A-Fib X1 occasion only on 06/17/22, self resolved and no further problems. Hx kidney stones. Gallstones. Sciatica. Hard of hearing. PRE-DIABETIC. History of Any Multi-Drug Resistant Organisms: None Reported Past Surgical History: Bowel Resection Additional Past Surgical History / Comment(s): Colonoscopy X2. colosotomy and reversal. PORT A CATH PLACED. Past Anesthesia/Blood Transfusion Reactions: No Reported Reaction, Family History of Problems w/ Anesthesia Additional Past Anesthesia/Blood Transfusion Reaction / Comment(s): Daughter PONV. No blood transfusion HX. Past Psychological History: No Psychological Hx Reported Smoking Status: Former smoker Past Alcohol Use History: None Reported Additional Past Alcohol Use History / Comment(s): Quit smoking in 1981. Past Drug Use History: None Reported - Past Family History Sister(s) Family Medical History: Cancer Additional Family Medical History / Comment(s): Pancreatic cancer. Medications and Allergies Home Medications Medication Instructions Recorded Confirmed Type gemfibroziL [Lopid] 600 mg PO BID 06/27/15 09/25/24 History metFORMIN HCL [Glucophage] 500 mg PO BID 06/17/22 09/25/24 History Metoprolol Tartrate [Lopressor] 25 mg PO BID #60 tab 06/19/22 09/25/24 Rx Allergies Allergy/AdvReac Type Severity Reaction Status Date / Time rosuvastatin [From Crestor] AdvReac Joint pain Verified 09/25/24 06:42 Surgical - Exam Vital Signs Temp Pulse Resp BP Pulse Ox 98.2 F 53 L 16 193/100 99 09/25/24 07:03 09/25/24 07:03 09/25/24 07:03 09/25/24 07:03 09/25/24 07:03 Physical exam: General: Well-developed, well-nourished HEENT: Normocephalic, sclerae nonicteric Abdomen: Nontender, nondistended Extremities: No edema Neuro: Alert and oriented Chest: Right-sided Port-A-Cath in place Results - Labs Abnormal Lab Results - Last 24 Hours (Table) 09/25/24 Range/Units 07:08 POC Glucose (mg/dL) 123 H (70-110) mg/dL Assessment and Plan (1) Rectal cancer Narrative/Plan: Will proceed with Port-A-Cath removal at this time. Current Visit: No Status: Acute Code(s): C20 - MALIGNANT NEOPLASM OF RECTUM SNOMED Code(s): 704023633
[2024-09-25] MEDS: LIDOCAINE 1%-EPI 1:100,000 20 ML VIAL SQ ONE ×2 (07:34)
[2024-09-25] MEDS ORDERED: NALOXONE 0.4 MG/ML 1 ML VIAL IV PRN (08:02)
[2024-09-25] MEDS: ceFAZolin 2 GM in DEXTROSE 5% IN WATER 50 ML IVPB ONE (08:02)
[2024-09-25] MEDS ORDERED: ACETAMINOPHEN TAB 325 MG TAB PO PRN (08:02)
--- NOTE | 2024-09-25 08:08 | P.OP ---
Date of Procedure: 09/25/24 Procedure(s) Performed: PREOPERATIVE DIAGNOSIS: Rectal cancer POSTOPERATIVE DIAGNOSIS: Same PROCEDURE: Port-A-Cath removal SURGEON: Monica EBL: Minimal ANESTHESIA: Local COMPLICATIONS: None OPERATIVE PROCEDURE: Patient was placed in the supine position. The chest was prepped and draped in the usual sterile fashion. The skin was localized with lidocaine solution. The previous incision was re-incised using a scalpel. The port was easily excised using accommodation of blunt dissection sharp dissection and electrocautery. The subcutaneous tissues were reapproximated using 3-0 Vicryl sutures. The skin was reapproximated using 4-0 Monocryl sutures. Skin glue was then applied. DISPOSITION: Stable to recovery room
[2024-09-25 08:38] VITALS: BP 167/78; PULSE 50
== END 2024-09-25 08:45 | disposition home or self-care (01) ==
LOC: OR 05:44
PROVIDERS: ATTEND Surgery
DX: C20 Malignant neoplasm of rectum (principal); I48.91 Unspecified atrial fibrillation; E11.9 Type 2 diabetes mellitus without complications; I10 Essential (primary) hypertension; E78.5 Hyperlipidemia, unspecified; M19.90 Unspecified osteoarthritis, unspecified site; Z87.442 Personal history of urinary calculi; Z85.048 Personal history of other malignant neoplasm of rectum, rectosigmoid junction, and anus; Z87.891 Personal history of nicotine dependence; Z45.2 Encounter for adjustment and management of vascular access device; Z79.84 Long term (current) use of oral hypoglycemic drugs; Z79.899 Other long term (current) drug therapy
CPT/HCPCS: 36590; J0690

== ENCOUNTER → 2024-10-26 | Outpatient (CLI) | payer MEDICARE, BC ==
[2024-10-26 15:41] LABS: BUN/Creat Ratio 20.25 Ratio (12.00-20.00); Blood Urea Nitrogen 16.2 mg/dL (9.0-27.0); Calcium 8.8 mg/dL (8.7-10.3); Carbon Dioxide 18.9 mmol/L (21.6-31.8); Chloride 104 mmol/L (96-109); Glucose 104 mg/dL (70-110); Potassium 4.3 mmol/L (3.5-5.5); Sodium 139 mmol/L (135-145)
== END | disposition home or self-care (01) ==
LOC: LABWHC1 08:44
PROVIDERS: ATTEND Nurse Practitioner Family
DX: E83.52 Hypercalcemia (principal)
CPT/HCPCS: 36415; 80048; 82306; 83970